=== PATIENT | female | born 1975 | race Two or more races ===

== ENCOUNTER 2021-07-11 19:10 | Emergency (ER) | payer SELFPAY ==
[~2021-07-11] VITALS: Ht 165.1 cm; Wt 76.7 kg
[2021-07-11 19:21] VITALS: BP 117/64
--- NOTE | 2021-07-11 19:30 | NUR ---
patient ambulated to the [facility] with a steady gait
--- NOTE | 2021-07-11 19:46 | NUR ---
patient ambulated to bed 3
--- NOTE | 2021-07-11 20:05 | NUR ---
Danii escoto in [facility] - 07/11/21 at 2159 by SONAM MODERATE SEDATION FOR CLOSED REDUCTION OF L ANKLE FRACTURE DISLOCATION STARTED.
--- NOTE | 2021-07-11 20:10 | NUR ---
Danii escoto in [facility] - 07/11/21 at 2159 by SONAM CLOSED REDUCTION OF L ANKLE FRACTURE PROCEDURE DISLOCATION ENDED.
--- NOTE | 2021-07-11 20:33 | NUR ---
DR CONNOR EVALUATING PT AT THIS TIME
--- NOTE | 2021-07-11 20:35 | NUR ---
46 YO/F BIB SELF W C/O HEADACHE XSEVERAL MONTHS SHOCK LIKE PULSATIONS 6/10 RADIATING TO BACK OF NECK, + APPROX "50% DECLINE IN VISION, LOOKS CLOUDY AND DARKER," + NAUSEA AND VOMITING XTODAY W AN EPISODE OF DARK VISION AND FEELS LIKE HAD AN EPISODE OF LOC BUT DID NOT FALL, FELT LIKE SHE FELL ASLEEP STANDING, + DIZZYNESS WHEN TURNING HEAD TO SIDES TO QUICKLY. PT REPORTS SEEING PCP BUT DID NOT HAVE EXAMS DONE AND WAS REFERRED TO [facility], HAD NOT SEEN DEPARTMENT COORDINATOR YET. PT DENIES BLOOD IN EMESIS, DENIES SOB, CHEST PAIN, FEVER CHILLS, D/C. PT AMBULATORY W STEADY GAIT. PT DOES NOT WANT MEDICATION FOR PAIN AT THIS TIME. VSS. BREATHING EVEN AND UNLABORED. PMH: ACID REFLUX ALLERGIES: DENIES
[2021-07-11] MEDS ORDERED: MECLIZINE 25 MG TAB PO ONE (20:50)
--- NOTE | 2021-07-11 21:20 | NUR ---
PT TO CT VIA WHEELCHAIR.
[2021-07-11 21:24] LABS: BASOPHILS % (AUTO) 0.4 % (0.0-2.0); EOSINOPHILS % (AUTO) 0.1 % (0.0-4.0); HEMATOCRIT 39.1 % (36-48); LYMPHOCYTES # (AUTO) 1.6 K/uL (2.5-16.5); MEAN CORPUSCULAR HEMOGLOBIN 30 pg (27-31); MEAN CORPUSCULAR HGB CONC 33 g/dL (33-37); MONOCYTES # (AUTO) 0.6 K/uL (0.8-1.0); MONOCYTES % (AUTO) 5.6 % (1.7-9.3); NEUTROPHILS # (AUTO) 8.4 K/uL (1.8-7.7); NEUTROPHILS % (AUTO) 78.9 % (42.2-75.2); PLATELET COUNT (AUTO) 342 K/uL (140-450); RED CELL DISTRIBUTION WIDTH 13.6 % (11.6-13.7); WHITE BLOOD COUNT (AUTO) 10.7 K/uL (4.8-10.8)
--- NOTE | 2021-07-11 21:27 | NUR ---
PT RETTURN FROM CT.
[2021-07-11 21:40] LABS: ALBUMIN 3.7 g/dL (3.4-5.0); ANION GAP 11.6 (8-16); CARBON DIOXIDE 28.2 mmol/L (21-32); CREATININE 0.6 mg/dL (0.6-1.3); MAGNESIUM 2.1 mg/dL (1.8-2.4); POTASSIUM 3.8 mmol/L (3.5-5.1); TOTAL BILIRUBIN 0.4 mg/dL (0.0-1.0)
--- NOTE | 2021-07-11 22:23 | NUR ---
PT REPORTS NO LONGER FEELING DIZZINESS UPON TURNING/MOVING HEAD.
--- NOTE | 2021-07-11 22:49 | NUR ---
Pt report given to DEMETRIA ZAMBRANO. Transfer of care at this time.
--- NOTE | 2021-07-11 23:15 | NUR ---
PT MOVED TO BED 5.
--- NOTE | 2021-07-11 23:16 | NUR ---
REPORT RECEIVED FROM HUSEYIN AUGUSTIN, FOR CONTINUITY OF CARE.
[2021-07-12] MEDS ORDERED: NACL 3% 300 ML IV ONE (00:15)
[2021-07-12] MEDS ORDERED: DEXAMETHASONE 10 MG/ML VIAL IVP ONE (00:15)
[2021-07-12] MEDS ORDERED: levETIRAcetam 1,000 MG in NACL 0.9% 100 ML IV ONE (00:15)
--- NOTE | 2021-07-12 00:19 | NUR ---
COVID SWAB SENT TO LAB
[2021-07-12] MEDS ORDERED: levETIRAcetam 100 MG/ML VIAL IV ONE ×2 (00:53→03:15)
--- NOTE | 2021-07-12 01:20 | NUR ---
Patient to be transferred to [facility]. Is being transferred due to HIGHER LEVEL OF CARE. Receiving facility has accepting physician and available space. ER physician has signed transfer form. Patient or responsible constitution party has agreed to transfer and signed form. Patient belongings inventoried and will be sent with patient. Copy of nursing notes, lab reports, EKG, Physicians Orders and X-rays to be sent with patient. Report called to ED AUGUSTIN at receiving facility. [facility] ambulance service has been called for transfer. ETA is 90 MINUTES.
[2021-07-12 03:24] VITALS: BP 128/69
--- NOTE | 2021-07-12 03:24 | NUR ---
pt tx by [facility] via [facility]
== END 2021-07-12 03:24 | disposition short-term general hospital (02) ==
LOC: MED 19:10
DX: G93.9 Disorder of brain, unspecified (principal); Z20.822 Contact with and (suspected) exposure to COVID-19; R42 Dizziness and giddiness; R51.9 Headache, unspecified; K21.9 Gastro-esophageal reflux disease without esophagitis
CPT/HCPCS: 36415; 70450; 80053; 81025; 83735; 85025; 87426; 96365; 96366; 96375; 99291; J1100; J1953; J3490; J7030; J8597; 96361